=== PATIENT | female | born 1965 | race Caucasian/White ===

== ENCOUNTER → 2019-07-29 12:38 | Outpatient (BNVA) | payer MEDICARE, MEDICAID, SELFPAY | PROVIDERS: Family Provider Internal Medicine; Visit Provider Family Medicine | DX: E11.9 Type 2 diabetes mellitus without complications (principal); F41.9 Anxiety disorder, unspecified; G47.33 Obstructive sleep apnea (adult) (pediatric); M79.7 Fibromyalgia; I10 Essential (primary) hypertension | CPT/HCPCS: 80053; 80061; 83036; 84443; 85025 ==

== ENCOUNTER 2019-09-07 10:47 | Outpatient (CLI) | payer MEDICARE, MEDICAID, SELFPAY ==
--- NOTE | 2019-09-07 11:34 | XR_ITS ---
WS: [id number] XR knee LT 3V* [id number] REASON FOR EXAM: pain FINDINGS: The left knee shows loss of the medial meniscal space with spurring off the tibial plateau medially. There is spurring also seen off the lateral tibial plateau. The patella femoral articulation shows moderately advanced osteoarthritic changes The tibia patella space is normal. There is spurring off the posterior tibial plateau. The degenerate changes on the left are moderately advanced but not to the degree seen on the right. XR/XR knee LT 3V* [id number] IMPRESSION: Moderate degenerative arthritis of the left knee.
--- NOTE | 2019-09-07 11:35 | XR_ITS ---
WS: [id number] XR knee RT 3V* [id number] REASON FOR EXAM: knee pain FINDINGS: The medial meniscal space on the right shows loss of the meniscus. Spurring off the medial condyle the femur and medial tibial plateau is seen. The patella femoral articulation shows marked degenerate changes. There is spurring off the anterior tibial plateau. The patella tibial space is normal. There is spurring off the head of the fibula posteriorly. XR/XR knee RT 3V* [id number] IMPRESSION: Advanced osteoarthritic changes of the right knee.
== END 2019-09-07 10:48 | disposition home or self-care (01) ==
PROVIDERS: Family Provider Internal Medicine; PCP Family Medicine; Visit Provider Family Medicine
DX: M25.561 Pain in right knee (principal); M25.562 Pain in left knee; M17.0 Bilateral primary osteoarthritis of knee
CPT/HCPCS: 73562

== ENCOUNTER → 2019-09-23 11:00 | Outpatient (BNVA) | payer MEDICARE, MEDICAID, SELFPAY | PROVIDERS: Family Provider Internal Medicine; PCP Family Medicine; Visit Provider Family Medicine | DX: M25.511 Pain in right shoulder (principal) | CPT/HCPCS: 73030 ==

== ENCOUNTER → 2019-09-24 09:01 | Outpatient (BNVA) | payer MEDICARE, MEDICAID, SELFPAY | PROVIDERS: Family Provider Internal Medicine; PCP Family Medicine; Referring Provider Family Medicine; Visit Provider Specialist | DX: M25.561 Pain in right knee (principal); M25.562 Pain in left knee | CPT/HCPCS: 73560; 73565 ==

== ENCOUNTER → 2019-10-14 09:55 | Outpatient (BNVA) | payer MEDICARE, MEDICAID, SELFPAY | PROVIDERS: Family Provider Internal Medicine; PCP Family Medicine; Referring Provider Specialist; Visit Provider Anesthesiology Pain Medicine | DX: G89.29 Other chronic pain (principal); M17.0 Bilateral primary osteoarthritis of knee; M54.9 Dorsalgia, unspecified; M25.511 Pain in right shoulder; M79.7 Fibromyalgia; F41.9 Anxiety disorder, unspecified; F32.9 Major depressive disorder, single episode, unspecified; Z79.891 Long term (current) use of opiate analgesic | CPT/HCPCS: 99204; 99205 ==

== ENCOUNTER → 2019-10-15 08:20 | Outpatient (BNVA) | payer MEDICARE, MEDICAID, SELFPAY | PROVIDERS: Family Provider Internal Medicine; PCP Family Medicine; Visit Provider Family Medicine | DX: E11.9 Type 2 diabetes mellitus without complications (principal) | CPT/HCPCS: 83036 ==

== ENCOUNTER → 2019-10-21 09:51 | Outpatient (BNVA) | payer MEDICARE, MEDICAID, SELFPAY | PROVIDERS: Family Provider Internal Medicine; PCP Family Medicine; Referring Provider Family Medicine; Visit Provider Specialist | DX: M25.511 Pain in right shoulder (principal) | CPT/HCPCS: 73030 ==

== ENCOUNTER → 2019-10-30 13:09 | Outpatient (BNVA) | payer MEDICARE, MEDICAID, SELFPAY | PROVIDERS: Family Provider Internal Medicine; PCP Family Medicine; Visit Provider Anesthesiology Pain Medicine | DX: M17.0 Bilateral primary osteoarthritis of knee (principal) | CPT/HCPCS: 20610; 77003; J1030; J2001; J3490 ==

== ENCOUNTER → 2019-11-03 08:26 | Outpatient (BNVA) | payer MEDICARE, MEDICAID, SELFPAY | PROVIDERS: Family Provider Internal Medicine; PCP Family Medicine; Visit Provider Anesthesiology Pain Medicine | DX: M17.0 Bilateral primary osteoarthritis of knee (principal); M19.011 Primary osteoarthritis, right shoulder; M75.111 Incomplete rotator cuff tear or rupture of right shoulder, not specified as traumatic; M79.7 Fibromyalgia | CPT/HCPCS: 20610; 99213; J1030; J3490 ==

== ENCOUNTER 2019-11-11 06:00 | Outpatient (RCR) | payer MEDICARE, MEDICAID, SELFPAY | END 2019-12-04 23:59 | disposition home or self-care (01) | LOC: APT 06:00 | PROVIDERS: PCP Family Medicine; Referring Provider Specialist; Visit Provider Specialist | DX: S46.911D Strain of unspecified muscle, fascia and tendon at shoulder and upper arm level, right arm, subsequent encounter (principal); X58.XXXD Exposure to other specified factors, subsequent encounter | CPT/HCPCS: 97110; 97163 ==

== ENCOUNTER → 2019-11-13 09:51 | Outpatient (BNVA) | payer MEDICARE, MEDICAID, SELFPAY | PROVIDERS: PCP Family Medicine; Visit Provider Anesthesiology Pain Medicine | DX: M17.0 Bilateral primary osteoarthritis of knee (principal); M25.562 Pain in left knee | CPT/HCPCS: 20610; 77002; 77003; J1030; J3490 ==

== ENCOUNTER → 2019-11-26 09:50 | Outpatient (BNVA) | payer MEDICARE, MEDICAID, SELFPAY | PROVIDERS: PCP Family Medicine; Visit Provider Anesthesiology Pain Medicine | DX: M17.0 Bilateral primary osteoarthritis of knee (principal); M19.011 Primary osteoarthritis, right shoulder; M75.111 Incomplete rotator cuff tear or rupture of right shoulder, not specified as traumatic; M79.7 Fibromyalgia; M62.831 Muscle spasm of calf; G47.30 Sleep apnea, unspecified; E11.9 Type 2 diabetes mellitus without complications; E66.01 Morbid (severe) obesity due to excess calories; Z79.891 Long term (current) use of opiate analgesic | CPT/HCPCS: 99214 ==

== ENCOUNTER 2019-12-14 08:09 | Day surgery (SDC) | payer MEDICARE, MEDICAID, SELFPAY ==
[2019-12-09 09:36] VITALS: BMI 58.6
[2019-12-14] MEDS: sodium chloride 0.9% 1,000 ML 30 ML IV (08:27)
[2019-12-14 08:32] VITALS: BP 154/89; PULSE 71; RESP 18; TEMP 36.1; O2SAT 96
[2019-12-14 08:35] LABS: Glucose Point of Care 121 mg/dL (70-110)
--- NOTE | 2019-12-14 08:42 | P.ANESASSM_ITS ---
Pre-Anesthetic Assessment Pre-Anesthetic Assessment: Height/Weight: Height 1.73 m Weight 175.087 kg Temp Pulse Resp BP Pulse Ox 97.0 F L 71 18 154/89 96 12/14/19 08:32 12/14/19 08:32 12/14/19 08:32 12/14/19 08:32 12/14/19 08:32 Proposed Procedure: Operation Date: 12/14/19 09:00 Proposed Procedures p Colonoscopy 53504 12.11(Not Applicable) - Javy Franks MD Familial anesthetic complications: denies Last intake: Intake Last Liquid Date 12/13/19 Last Liquid Time 21:00 Last Solid Date 12/12/19 Last Intake: 00:00 Social: Social History: No alcohol and No tobacco Exam: Pre-Anes Outpt Exam: alert and oriented x 3 Airway: Submandibular: WNL Cervical ROM: WNL MP: 1 Additional comments: intact Pulmonary: Pulmonary: Asthma (wheezing ), SAN and Sleep apnea (CPAP ) CV/HEM: CV/HEM: HTN : : None reported Hepatic: Hepatic: None reported GI: GI: GERD (denies ) Metabolic: Metabolic: DM (NIDDM) and Morbid obesity Musc/skel: Musc/skel: Fibromyalgia and OA/DJD Neuropsych: Neuropsych: Anxiety and Depression Anesthetic Plan: ASA status: 3 Anesthesia: Anesthesia Evaluation and MAC Meds/Allergies Current Medications: Current Medications Generic Name Dose Route Start Last Admin Trade Name Freq PRN Reason Stop Dose Admin Sodium Chloride 1,000 mls @ 30 ml s/hr 12/14/19 08:15 12/14/19 08:27 Sodium Chloride 0.9% IV 30 mls/hr .Q24H SHRUTHI Administration PFSH Anesthesia PFSH: Medical History (Updated 12/02/19 @ 14:57 by Javy Franks MD) Anxiety Bilateral knee pain Chronic back pain Depression Diabetes Fibromyalgia Hypertension residential (current) use of opiate analgesic Pain management contract signed Sleep apnea with use of nocturnal bilevel positive airway pressure (BPAP) Social History (Updated 12/02/19 @ 14:09 by JULIO Arteaga) Smoking and tobacco status: former smoker Alcohol intake: never History of recent travel: No Data Anesthesia Other Labs: Laboratory Results - last 48 hr 12/14/19 08:30 POC Glucose 121 Cardiac Studies: No Data to Display
--- NOTE | 2019-12-14 09:19 | W.PM.OPSUD ---
Surgery/Procedure H&P Update DATE OF PROCEDURE: December 14, 2019 DATE H&P PERFORMED: 12/02/19 PREOP DIAGNOSIS: c PLANNED PROCEDURE: Operation Date: 12/14/19 09:00 Proposed Procedures p Colonoscopy 94287 12.11(Not Applicable) - Javy Franks MD
[2019-12-14 09:29] VITALS: BP 141/72; PULSE 70; RESP 16; TEMP 36.9; O2SAT 96
--- NOTE | 2019-12-14 09:33 | ANE.PACU2 ---
Inpatient post-anesthesia follow up: Airway intact: Yes Vital signs: Temperature 98.4 F Pulse Rate 70 Respiratory Rate 16 Blood Pressure 141/72 Pulse Oximetry 96 Oxygen Delivery Me thod Room Air Oxygen Flow Rate Fraction of Inspir ed Oxygen Hydration adequate: Yes Nausea and vomiting: No Pain level: 1 Mental status: Baseline
[2019-12-14 09:40] VITALS: BP 142/85; PULSE 69; RESP 16; O2SAT 95
== END 2019-12-14 09:52 | disposition home or self-care (01) ==
PROVIDERS: PCP Family Medicine; Visit Provider Internal Medicine
PROC: 0DJD8ZZ Inspection of Lower Intestinal Tract, Via Natural or Artificial Opening Endoscopic (ICD-10-PCS; CPT 45378; principal; 2019-12-14 09:00)
DX: Z12.11 Encounter for screening for malignant neoplasm of colon (principal); J45.909 Unspecified asthma, uncomplicated; G47.30 Sleep apnea, unspecified; I10 Essential (primary) hypertension; K21.9 Gastro-esophageal reflux disease without esophagitis; E11.9 Type 2 diabetes mellitus without complications; E66.01 Morbid (severe) obesity due to excess calories; Z68.43 Body mass index [BMI] 50.0-59.9, adult; F41.9 Anxiety disorder, unspecified; F32.9 Major depressive disorder, single episode, unspecified; M79.7 Fibromyalgia; Z87.891 Personal history of nicotine dependence; Z79.891 Long term (current) use of opiate analgesic
CPT/HCPCS: 12345; 36416; 45378; 82962; G0121; J2704; J7030

== ENCOUNTER → 2019-12-22 11:10 | Outpatient (BNVA) | payer MEDICARE, MEDICAID, SELFPAY | PROVIDERS: PCP Family Medicine; Referring Provider Dermatology; Visit Provider Dermatology | DX: Z12.83 Encounter for screening for malignant neoplasm of skin (principal); L91.8 Other hypertrophic disorders of the skin; L82.1 Other seborrheic keratosis; D22.9 Melanocytic nevi, unspecified; L73.8 Other specified follicular disorders | CPT/HCPCS: 99203 ==

== ENCOUNTER → 2020-01-06 10:56 | Outpatient (BNVA) | payer MEDICARE, MEDICAID, SELFPAY | PROVIDERS: PCP Family Medicine; Visit Provider Dermatology | DX: L91.8 Other hypertrophic disorders of the skin (principal) | CPT/HCPCS: 17110 ==

== ENCOUNTER → 2020-01-12 09:22 | Outpatient (BNVA) | payer MEDICARE, MEDICAID, SELFPAY | PROVIDERS: PCP Internal Medicine; Visit Provider Anesthesiology Pain Medicine | DX: G89.29 Other chronic pain (principal); M17.0 Bilateral primary osteoarthritis of knee; M75.111 Incomplete rotator cuff tear or rupture of right shoulder, not specified as traumatic; M19.011 Primary osteoarthritis, right shoulder; M54.9 Dorsalgia, unspecified; M79.7 Fibromyalgia; Z79.891 Long term (current) use of opiate analgesic | CPT/HCPCS: 99213; 99214 ==

== ENCOUNTER → 2020-02-01 10:36 | Outpatient (BNVA) | payer MEDICARE, MEDICAID, SELFPAY | PROVIDERS: PCP Internal Medicine; Visit Provider Dermatology | DX: L91.8 Other hypertrophic disorders of the skin (principal) | CPT/HCPCS: 17111 ==

== ENCOUNTER → 2020-02-09 09:55 | Outpatient (BNVA) | payer MEDICARE, MEDICAID, SELFPAY | PROVIDERS: PCP Internal Medicine; Visit Provider Anesthesiology Pain Medicine | DX: G89.29 Other chronic pain (principal); M17.0 Bilateral primary osteoarthritis of knee; M47.816 Spondylosis without myelopathy or radiculopathy, lumbar region; M54.9 Dorsalgia, unspecified; M79.7 Fibromyalgia; M75.111 Incomplete rotator cuff tear or rupture of right shoulder, not specified as traumatic; M19.011 Primary osteoarthritis, right shoulder; Z79.891 Long term (current) use of opiate analgesic | CPT/HCPCS: 99214 ==

== ENCOUNTER → 2020-02-18 13:21 | Outpatient (BNVA) | payer MEDICARE, MEDICAID, SELFPAY | PROVIDERS: PCP Internal Medicine; Referring Provider Dermatology; Visit Provider Podiatrist Foot & Ankle Surgery | DX: M21.611 Bunion of right foot (principal) | CPT/HCPCS: 73630 ==

== ENCOUNTER 2020-02-18 15:15 | Outpatient (CLI) | payer MEDICARE, MEDICAID, SELFPAY | END 2020-02-18 15:16 | disposition home or self-care (01) | LOC: SPT 15:16 | PROVIDERS: PCP Internal Medicine; Visit Provider Podiatrist Foot & Ankle Surgery | DX: Z47.89 Encounter for other orthopedic aftercare (principal); M54.9 Dorsalgia, unspecified; G89.29 Other chronic pain; M25.561 Pain in right knee; M25.562 Pain in left knee | CPT/HCPCS: 97760; L4397 ==

== ENCOUNTER 2020-02-24 06:00 | Outpatient (RCR) | payer MEDICARE, MEDICAID, SELFPAY | END 2020-03-05 23:59 | disposition home or self-care (01) | LOC: TPT 06:00 | PROVIDERS: PCP Internal Medicine; Referring Provider Podiatrist Foot & Ankle Surgery; Visit Provider Podiatrist Foot & Ankle Surgery | DX: M54.9 Dorsalgia, unspecified (principal); G89.29 Other chronic pain; M25.561 Pain in right knee; M25.562 Pain in left knee | CPT/HCPCS: 97110; 97140; 97161 ==

== ENCOUNTER 2020-03-06 06:00 | Outpatient (RCR) | payer MEDICARE, MEDICAID, SELFPAY | END 2020-04-04 23:59 | disposition home or self-care (01) | LOC: TPT 06:00 | PROVIDERS: PCP Internal Medicine; Referring Provider Podiatrist Foot & Ankle Surgery; Visit Provider Podiatrist Foot & Ankle Surgery | DX: M76.61 Achilles tendinitis, right leg (principal) | CPT/HCPCS: 97035; 97110; 97140 ==

== ENCOUNTER → 2020-03-08 09:47 | Outpatient (BNVA) | payer MEDICARE, MEDICAID, SELFPAY | PROVIDERS: PCP Internal Medicine; Visit Provider Anesthesiology Pain Medicine | DX: G89.29 Other chronic pain (principal); M17.0 Bilateral primary osteoarthritis of knee; M19.011 Primary osteoarthritis, right shoulder; M75.111 Incomplete rotator cuff tear or rupture of right shoulder, not specified as traumatic; M54.9 Dorsalgia, unspecified; I10 Essential (primary) hypertension; E11.9 Type 2 diabetes mellitus without complications; F41.9 Anxiety disorder, unspecified; F32.9 Major depressive disorder, single episode, unspecified; M79.7 Fibromyalgia; Z79.891 Long term (current) use of opiate analgesic | CPT/HCPCS: 99213; 99214 ==

== ENCOUNTER → 2020-03-17 09:35 | Outpatient (BNVA) | payer MEDICARE, MEDICAID, SELFPAY | PROVIDERS: PCP Family Medicine; Visit Provider Nurse Practitioner Family | DX: E78.2 Mixed hyperlipidemia (principal); E11.9 Type 2 diabetes mellitus without complications; I10 Essential (primary) hypertension; E55.9 Vitamin D deficiency, unspecified; Z12.31 Encounter for screening mammogram for malignant neoplasm of breast; M54.9 Dorsalgia, unspecified; G89.29 Other chronic pain; M62.831 Muscle spasm of calf; M25.571 Pain in right ankle and joints of right foot; J45.30 Mild persistent asthma, uncomplicated; J30.89 Other allergic rhinitis | CPT/HCPCS: 80053; 80061; 81003; 82306; 83036; 83735; 84100; 84443; 85025 ==

== ENCOUNTER 2020-04-05 06:00 | Outpatient (RCR) | payer MEDICARE, MEDICAID, SELFPAY | END 2020-05-02 23:00 | disposition home or self-care (01) | LOC: TPT 06:00 | PROVIDERS: PCP Family Medicine; Referring Provider Podiatrist Foot & Ankle Surgery; Visit Provider Podiatrist Foot & Ankle Surgery | DX: M65.279 Calcific tendinitis, unspecified ankle and foot (principal) | CPT/HCPCS: 97035; 97110; 97140 ==

== ENCOUNTER → 2020-04-14 10:32 | Outpatient (BNVA) | payer MEDICARE, MEDICAID, SELFPAY | PROVIDERS: PCP Family Medicine; Visit Provider Nurse Practitioner Family | DX: L30.9 Dermatitis, unspecified (principal); M79.645 Pain in left finger(s) | CPT/HCPCS: 73140 ==

== ENCOUNTER 2020-04-27 15:22 | Emergency (ER) | payer MEDICARE, MEDICAID, SELFPAY ==
[2020-04-27 15:28] VITALS: BP 181/100; PULSE 80; RESP 18; TEMP 36.8; O2SAT 95; BMI 58.6
[2020-04-27 15:31] VITALS: BP 170/98; PULSE 68; RESP 18; O2SAT 94
[2020-04-27 16:43] LABS: Basophils # 0.1 10^3/uL (0.0-0.1); Basophils % 1.1 %; Eosinophils # 0.2 10^3/uL (0.0-0.8); Eosinophils % 2.4 %; Hematocrit 43.7 % (37.0-47.0); Hemoglobin 13.3 g/dL (11.5-15.3); Lymphocytes # 2.2 10^3/uL (0.8-4.8); Lymphocytes % 29.9 %; Mean Corpuscular HGB Conc 30.4 g/dL (30.0-36.0); Mean Corpuscular Volume 78.9 fL (81-99); Mean Platelet Volume 10.3 fL (7.4-10.4); Monocytes # 0.4 10^3/uL (0.2-0.9); Monocytes % 5.9 %; Neutrophils # 4.49 10^3/uL (1.8-7.7); Neutrophils % 60.2 %; Nucleated Red Blood Cells % 0 %; Platelet Count 252 10^3/cmm (130-400); Red Blood Count 5.54 10^6/uL (4.1-5.3); Red Cell Distribution Width 16.8 % (12.1-15.1); White Blood Count 7.5 10^3/uL (4.0-10.0)
--- NOTE | 2020-04-27 17:17 | USCV_ITS ---
Janna Lozano Age: 54 Gender: F : 1965 Exam Date: 04/27/2020 17:54 Ordering Phys: Garrett Brooks DO Technologist: Exam Location: [facility] [place]_ Indication: RT LEG SWELLING AND CRAMPING HISTORY: Lower extremity swelling. PROCEDURES: Venous duplex imaging was performed in only the right lower extremity. The following venous structures were evaluated: common femoral vein, profunda vein, proximal portion of the greater saphenous vein, superficial femoral vein, and the popliteal vein. In addition, the posterior tibial and peroneal trunk were evaluated. FINDINGS: Normal 2-D Doppler and augmentation and compressibility throughout the lower extremity venous structures. Additional imaging through the proximal calf veins also reveals no thrombus. Limited evaluation of the greater saphenous vein is patent with no thrombus. CONCLUSIONS No DVT right lower extremity. Dr. Corina Dejesus DO (Electronically Signed) Final Date: 28 April 2020 08:41 S
--- NOTE | 2020-04-27 17:17 | ED_ITS ---
HPI - Extremity Problem General: Chief complaint: Extremity Problem,Nontraumatic Stated complaint: R LEG BLOOD CLOTS, SENT FROM Time Seen by Provider: 04/27/20 17:14 History of Present Illness: HPI Narrative: 54 year old female in with swelling and pain in lower extremities. Right greater than left. She was on the phone with her doctors office and they recommended she come to the ED for evaluation of blood clot. MD Complaint: extremity swelling Onset (ago): day(s) Pain Consistency: constant Radiation: none Relieving factors: nothing Associated symptoms: Reports no associated symptoms; Deny chest pain or fever(s) Review of Systems General: Reports: 10 or more systems reviewed and unremarkable except in HPI and below Const: Denies: fever(s) or chills Eyes: Denies: change in vision ENMT: Denies: throat pain Card: Denies: chest pain Resp: Denies: dyspnea GI: Denies: nausea or vomiting Musc: Reports: extremity pain and extremity swelling Neuro: Denies: headache(s) Endo: Reports: polyuria PFSH ED PFSH: Medical History Anxiety Bilateral knee pain Chronic back pain Depression Diabetes Eczema Fibromyalgia Finger pain Finger strain 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 Mixed hyperlipidemia Pain management contract signed Sleep apnea with use of nocturnal bilevel positive airway pressure (BPAP) Vitamin D deficiency Surgical History Hx of colonoscopy S/P abdominal hysterectomy SUNIL with oopherectomy Due to endometriosis - Dr Jamil Peña, [place] S/P arthroscopic knee surgery Bilateral S/P carpal tunnel release Status post wisdom tooth extraction Family History Other CAD (coronary artery disease) Cancer Diabetes Hypertension Social History Smoking and tobacco status: former smoker Alcohol intake: never History of recent travel: No ([place]) Physical Exam Const: COMMON NORMALS: no acute distress; negative for average body habitus HENMT: COMMON NORMALS: normocephalic HEAD & SCALP: normal to inspection and normocephalic Resp: COMMON NORMALS: normal respiratory effort EFFORT & INSPECTION: Yes able to speak in complete sentences Cardio: COMMON NORMALS: regular rate and regular rhythm RATE: regular rate RHYTHM: regular rhythm GI: COMMON NORMALS: Normal to inspection, nondistended, normoactive bowel sounds present AUSCULTATION: Yes normoactive bowel sounds Extremity: COMMON NORMALS: negative for normal to inspection NARRATIVE EXTREMITY EXAM: Mild non-pitting lower ext edema. Negative Homans sign Course Vital Signs: Vital signs: Vital Signs Temperature 98.3 F 04/27/20 15:28 Pulse Rate 66 04/27/20 17:29 Respiratory Rate 18 04/27/20 17:29 Blood Pressure 168/70 04/27/20 17:29 Pulse Oximetry 94 04/27/20 17:29 MDM - Extremity (Nontraumatic) MDM Narrative: Medical decision making narrative: 54 year old female with concerns of Right lower extremity DVT. Will check BMP given cramping pain. Check US. Disposition home if negative. Lab Data: Labs: Lab Results 04/27/20 04/27/20 Range/Units 16:28 16:28 WBC 7.5 (4.0-10.0) 10^3/ uL RBC 5.54 H (4.1-5.3) 10^6/u L Hgb 13.3 (11.5-15.3) g/dL Hct 43.7 (37.0-47.0) % MCV 78.9 L (81-99) fL MCH 24.0 L (28.0-34.0) pg MCHC 30.4 (30.0-36.0) g/dL RDW 16.8 H (12.1-15.1) % Plt Count 252 (130-400) 10^3/c mm MPV 10.3 (7.4-10.4) fL Neut % (Auto) 60.2 % Lymph % (Auto) 29.9 % [place] % (Auto) 5.9 % Eos % (Auto) 2.4 % Baso % (Auto) 1.1 % Neut # (Auto) 4.49 (1.8-7.7) 10^3/u L Lymph # (Auto) 2.2 (0.8-4.8) 10^3/u L [place] # (Auto) 0.4 (0.2-0.9) 10^3/u L Eos # (Auto) 0.2 (0.0-0.8) 10^3/u L Baso # (Auto) 0.1 (0.0-0.1) 10^3/u L Nucleated RBC % (a uto) 0 % Nucleated RBCs # 0.0 /100WBC PT 13.60 (12.1-14.9) SECO NDS INR 1.01 (0.8-1.2) Discharge Plan Discharge Patient Disposition: Home Clinical Impression: Lower extremity edema Condition: Stable Prescriptions: No Action Fluarix Quad (PF) 60 mcg (15 mcg x 4)/0.5 mL syringe 0.5 ml IM ONCE Qty: 0.5 RF: 0 sertraline 100 mg tablet 150 mg PO DAILY Qty: 120 RF: 6 pravastatin 40 mg tablet 40 mg PO DAILY Qty: 90 RF: 3 (DME) nebulizers Misc See Rx Instructions .ROUTE .MEDSUPPLY Qty: 1 RF: 0 levalbuterol HCl 1.25 mg/3 mL solution for nebulization 1.25 mg inhalation Q6H PRN (Reason: shortness of breath or wheezing) 30 Days Qty: 90 RF: 1 acetaminophen 500 mg capsule 1,000 mg PO BID PRN (Reason: pain) 30 Days Qty: 30 RF: 5 cetirizine [All Day Allergy (cetirizine)] 10 mg tablet 10 mg PO DAILY Qty: 30 RF: 4 cyclobenzaprine 5 mg tablet 5 mg PO TID PRN (Reason: muscle spasm) 30 Days Qty: 30 RF: 5 diclofenac sodium [Voltaren] 1 % gel 4 g TOPICAL QID 30 Days Qty: 100 RF: 5 diclofenac sodium 75 mg tablet,delayed release (DR/EC) 75 mg PO BID 30 Days Qty: 60 RF: 5 Jardiance 25 mg tablet See Rx Instructions .ROUTE .COMPLEX Qty: 90 RF: 0 losartan 100 mg tablet 100 mg PO DAILY Qty: 90 RF: 3 triamcinolone acetonide [Nasacort] 55 mcg aerosol,spray 1 spray INTRANASAL DAILY Qty: 16.9 RF: 1 multivitamin Tablet 1 tab PO DAILY RF: 0 tramadol 50 mg tablet 50 mg PO BID PRN (Reason: pain) Qty: 45 RF: 0 budesonide 0.5 mg/2 mL suspension for nebulization 0.25 mg inhalation BID RF: 0 triamcinolone acetonide 0.1 % cream 1 applic TOPICAL BID Qty: 30 RF: 2 cholecalciferol (vitamin D3) 1,250 mcg (50,000 unit) capsule 1,250 mcg PO .weekly Qty: 4 RF: 5 Discharge Orders: Discharge ED (Routine); Ordered 04/27/20 Ordered By: Garrett Brooks Referrals: MARIELLE Juarez, CLOCK REPAIR TECHNICIAN [Primary Care Provider] - Discharge Diet: Low Salt Discharge Activity: Resume usual activity Patient Instructions: Leg Edema (ED) Coding Level of Care Code ED Dance Costume Designer for Myrna Glaser
[2020-04-27 17:28] VITALS: PULSE 67
[2020-04-27 17:29] VITALS: BP 168/70; PULSE 66; RESP 18; O2SAT 94
[2020-04-27 17:30] LABS: INR 1.01 (0.8-1.2)
[2020-04-27 17:31] LABS: Partial Thromboplastin Time 28.4 SECONDS (23.9-36.7)
[2020-04-27 17:32] LABS: Alanine Aminotransferase 19 U/L (0-33); Albumin Level 4.1 g/dL (3.5-5.2); Alkaline Phosphatase 82 IU/L (35-105); Anion Gap 14.2 (5-19); Aspartate Amino Transferase 17 U/L (0-32); Blood Urea Nitrogen 22 mg/dL (6-20); Calcium 9.5 mg/dL (8.5-10.5); Carbon Dioxide 26 mmol/L (22-29); Chloride 102 mmol/L (98-107); Globulin 3.2 g/dL (1.3-4.6); Glucose 99 mg/dL (65-115); Osmolality Calculated 289 mOsm/kg (285-295); Potassium 4.2 mmol/L (3.5-5.1); Sodium 138 mmol/L (136-145); Total Bilirubin 0.3 mg/dL (0.15-1.2); Total Protein 7.3 g/dL (6.6-8.7)
[2020-04-27 17:33] LABS: D Dimer 0.57 ug/mIFEU (0-0.59)
[2020-04-27] MEDS: ketorolac 60 mg/2 mL INJ IM (17:51)
--- NOTE | 2020-04-27 19:43 | PC.NURSE ---
pt not in room during pt rounding. informed pt left AMA
== END 2020-04-27 19:46 | disposition home or self-care (01) ==
PROVIDERS: Nurse Practitioner Family; Emergency Provider Family Medicine; PCP Nurse Practitioner Family
DX: R60.0 Localized edema (principal); E11.9 Type 2 diabetes mellitus without complications; I10 Essential (primary) hypertension; E78.2 Mixed hyperlipidemia; Z87.891 Personal history of nicotine dependence
CPT/HCPCS: 12345; 80053; 85025; 85378; 85610; 85730; 93971; 96372; 99281; 99283; J1885

== ENCOUNTER → 2020-05-03 10:07 | Outpatient (BNVA) | payer MEDICARE, MEDICAID, SELFPAY | PROVIDERS: PCP Nurse Practitioner Family; Visit Provider Anesthesiology Pain Medicine | DX: M54.9 Dorsalgia, unspecified (principal); G89.29 Other chronic pain; M17.0 Bilateral primary osteoarthritis of knee; M25.561 Pain in right knee; M25.562 Pain in left knee; M25.511 Pain in right shoulder; G47.30 Sleep apnea, unspecified; I10 Essential (primary) hypertension; E11.9 Type 2 diabetes mellitus without complications; F41.9 Anxiety disorder, unspecified; F32.0 Major depressive disorder, single episode, mild; M79.7 Fibromyalgia; E66.01 Morbid (severe) obesity due to excess calories; M75.111 Incomplete rotator cuff tear or rupture of right shoulder, not specified as traumatic; M19.011 Primary osteoarthritis, right shoulder | CPT/HCPCS: 99213 ==

== ENCOUNTER → 2020-05-12 09:32 | Outpatient (BNVA) | payer MEDICARE, MEDICAID, SELFPAY | PROVIDERS: PCP Nurse Practitioner Family; Visit Provider Specialist | DX: M79.645 Pain in left finger(s) (principal) | CPT/HCPCS: 73140 ==

== ENCOUNTER 2020-05-17 14:44 | Outpatient (CLI) | payer MEDICARE, MEDICAID, SELFPAY ==
[2020-05-17 19:06] LABS: Iron 51 ug/dL (37-145); Percent Saturation 21.1 % (20-50); Total Iron Binding Capacity 241 mcg/dl; Unsaturated Iron Binding 190 ug/dL (112-347)
== END 2020-05-17 14:45 | disposition home or self-care (01) ==
PROVIDERS: PCP Nurse Practitioner Family; Visit Provider Nurse Practitioner Family
DX: D64.9 Anemia, unspecified (principal)
CPT/HCPCS: 36415; 83540; 83550

== ENCOUNTER 2020-05-17 15:25 | Outpatient (CLI) | payer MEDICARE, MEDICAID, SELFPAY ==
--- NOTE | 2020-05-17 15:30 | MM_ITS ---
WS: [id number] BILATERAL DIGITAL SCREENING MAMMOGRAPHY WITH CAD CLINICAL INFORMATION: Z12.31 - Encounter for screening mammogram for malignant neoplasm of breast HISTORY: Screening mammogram. No current complaints. COMPARISON: November 15, 2009 TECHNIQUE: Bilateral CC and MLO views. FINDINGS: Scattered fibroglandular densities bilaterally. No suspicious focal mass, asymmetry, calcifications, or architectural distortion. No evidence of malignancy. Punctate and clustered calcifications. MM/[place] [id number] IMPRESSION: BI-RADS: 2-Benign FOLLOW UP: 1 Year Follow-up Recommend return to annual screening mammography.
== END 2020-05-17 15:26 | disposition home or self-care (01) ==
LOC: RADSHAW 15:28
PROVIDERS: PCP Nurse Practitioner Family; Visit Provider Nurse Practitioner Family
DX: Z12.31 Encounter for screening mammogram for malignant neoplasm of breast (principal)
CPT/HCPCS: 77067

== ENCOUNTER 2020-05-18 12:15 | Outpatient (CLI) | payer MEDICARE, MEDICAID, SELFPAY ==
--- NOTE | 2020-05-18 12:36 | XR_ITS ---
WS: [id number] LUMBAR SPINE: 6 VIEWS TECHNIQUE: AP, lateral, and L5-S1 spot. Lateral views in neutral, flexion and extension. HISTORY: M54.5 - Low back pain COMPARISON: None available. Mild S-shaped curvature lumbar spine. Posterior alignment is normal. With flexion and extension no in stability. Facet joint arthritis is moderate at L4-5 and L5-S1. No fractures. Osteopenia. SI joints are symmetric bilaterally. No soft tissue abnormalities. XR/XR lumbar spine min 4V [id number] IMPRESSION: 1. No lumbar spine instability. 2. Mild S-shaped degenerative scoliosis. 3. Moderate facet joint arthritis at L4-5 and L5-S1.
--- NOTE | 2020-05-18 12:36 | XR_ITS ---
WS: [id number] RIGHT HIP HISTORY: M25.551 - Pain in right hip COMPARISON: None available. Right hip: No acute fracture or dislocation. Mild narrowing of the hip joint. Hypertrophic osteophyte extends laterally from the superior acetabulum. Mild enthesopathy at the greater trochanter. No soft tissue abnormality. XR/XR hip RT 2-3V wo/w pel* [id number] IMPRESSION: 1. No hip fracture. 2. Mild RIGHT hip joint arthritis.
== END 2020-05-18 12:16 | disposition home or self-care (01) ==
LOC: RADWPI 12:20
PROVIDERS: PCP Nurse Practitioner Family; Visit Provider Nurse Practitioner Family
DX: M25.551 Pain in right hip (principal); M47.816 Spondylosis without myelopathy or radiculopathy, lumbar region; M47.817 Spondylosis without myelopathy or radiculopathy, lumbosacral region
CPT/HCPCS: 72114; 73502

== ENCOUNTER → 2020-05-20 09:51 | Outpatient (BNVA) | payer MEDICARE, MEDICAID, SELFPAY | PROVIDERS: PCP Nurse Practitioner Family; Visit Provider Anesthesiology Pain Medicine | DX: G89.29 Other chronic pain (principal); M25.551 Pain in right hip; M19.011 Primary osteoarthritis, right shoulder; M75.111 Incomplete rotator cuff tear or rupture of right shoulder, not specified as traumatic; M17.0 Bilateral primary osteoarthritis of knee; M54.9 Dorsalgia, unspecified; G47.30 Sleep apnea, unspecified; M79.7 Fibromyalgia; M54.16 Radiculopathy, lumbar region; M62.831 Muscle spasm of calf | CPT/HCPCS: 99215 ==

== ENCOUNTER → 2020-05-23 13:00 | Outpatient (BNVA) | payer MEDICARE, MEDICAID, SELFPAY | PROVIDERS: PCP Nurse Practitioner Family; Visit Provider Anesthesiology Pain Medicine | DX: M54.16 Radiculopathy, lumbar region (principal) | CPT/HCPCS: 64483; 64484; J1100; J3490 ==

== ENCOUNTER → 2020-06-06 10:48 | Outpatient (BNVA) | payer MEDICARE, MEDICAID, SELFPAY | PROVIDERS: PCP Nurse Practitioner Family; Visit Provider Anesthesiology Pain Medicine | DX: G89.29 Other chronic pain (principal); M54.16 Radiculopathy, lumbar region; M54.9 Dorsalgia, unspecified; M17.0 Bilateral primary osteoarthritis of knee; M79.7 Fibromyalgia; M16.11 Unilateral primary osteoarthritis, right hip; M19.011 Primary osteoarthritis, right shoulder; M75.111 Incomplete rotator cuff tear or rupture of right shoulder, not specified as traumatic; M62.831 Muscle spasm of calf; I10 Essential (primary) hypertension; F41.9 Anxiety disorder, unspecified; F32.0 Major depressive disorder, single episode, mild | CPT/HCPCS: 99214 ==